=== PATIENT | female | born 1940 | race Caucasian/White ===

== ENCOUNTER → 2024-07-26 07:46 | Outpatient (REF) | payer MEDICARE, SELFPAY ==
[2024-07-26 08:59] LABS: % Basophils 0.4 % (0-2); % Eosinophils 2.2 % (0-6); % Immature Granulocytes 0.5 % (0-0.5); % Lymphocytes 12.1 % (20.5-51.1); % Monocytes 8.1 % (1.7-9.3); % Neutrophils 76.7 % (42.2-75.2); Absolute Basophils 0.1 10^3/uL (0-0.2); Absolute Eosinophils 0.3 10^3/uL (0-0.7); Absolute Immature Granulocytes 0.1 10^3/uL (0-0.05); Absolute Lymphocytes 1.3 10^3/uL (1.2-3.4); Absolute Monocytes 0.9 10^3/uL (0.1-0.6); Absolute Neutrophils 8.5 10^3/uL (1.4-6.5); Hematocrit 47.8 % (37.0-47.0); Hemoglobin 15.8 g/dL (12.0-16.0); Mean Corp Hgb Conc. 33.1 g/dL (33.0-37.0); Mean Corpuscular Hgb 30.8 pg (27.0-31.0); Mean Corpuscular Volume 93.2 fL (81.0-99.0); Nucleated Red Blood Cells % 0 %; Platelet Count 284 10^3/uL (130-400); Red Blood Cell Count 5.13 10^6/uL (4.20-5.40); Red Cell Dist. Width 14.4 % (11.5-14.5); White Blood Cell Count 11.1 10^3/uL (4.8-10.8)
[2024-07-26 09:43] LABS: ALT (SGPT) 34 U/L (0-35); AST (SGOT) 35 U/L (14-36); Albumin 4.3 g/dl (3.5-5.0); Alkaline Phosphatase 103 U/L (38-126); Blood Urea Nitrogen 26 mg/dl (7-17); Calcium 9.5 mg/dl (8.4-10.2); Carbon Dioxide 31 mmol/L (22-30); Chloride 102 mmol/L (98-107); Direct Bilirubin 0.3 mg/dl (0.0-0.4); Glucose 99 mg/dl (70-99); HDL Cholesterol 44 mg/dl; LDL Cholesterol, Calculated 80 mg/dl; Potassium 4.2 mmol/L (3.5-5.1); Sodium 143 mmol/L (135-145); Total Bilirubin 1.3 mg/dl (0.2-1.3); Total Cholesterol 154 mg/dl (50-199); Total Protein 6.8 g/dl (6.3-8.2); Triglyceride 150 mg/dl (10-149); Very Low Density Lipoprotein 30 mg/dl (0-30); eGFR 54.87
== END ==
LOC: REG 07:46
PROVIDERS: ATTENDING PHYSICIAN Internal Medicine Cardiovascular Disease; FAMILY PHYSICIAN Family Medicine
DX: I25.10 Atherosclerotic heart disease of native coronary artery without angina pectoris (principal); I25.810 Atherosclerosis of coronary artery bypass graft(s) without angina pectoris; I10 Essential (primary) hypertension; Z86.73 Personal history of transient ischemic attack (TIA), and cerebral infarction without residual deficits; Z95.1 Presence of aortocoronary bypass graft
CPT/HCPCS: 36415; 80053; 80061; 82248; 85025